=== PATIENT | female | born 1990 | race Caucasian/White ===

== ENCOUNTER 2016-10-05 15:00 | Outpatient (RCR) | payer BC | END 2016-10-13 | LOC: M OUTALCOH 15:00 | PROVIDERS: ATTEND Psychiatry & Neurology Psychiatry | DX: F11.20 Opioid dependence, uncomplicated (principal); F17.200 Nicotine dependence, unspecified, uncomplicated ==

== ENCOUNTER 2016-10-08 13:06 | Emergency (ER) | payer BC ==
--- NOTE | 2016-10-08 14:20 | EDDOCDS ---
Physician Documentation [facility] Name: Kaila Larson Age: 26 yrs Sex: Female : 1990 Arrival Date: 10/08/2016 Time: 13:06 Bed TR8 Private MD: Ebony Aguirre Disposition: 10/08/16 13:41 Discharged to Home/Self Care. Impression: Epigastric pain. - Condition is Stable. - Discharge Instructions: Gastritis, Adult, [id number]. - Prescriptions for Carafate 1 gram Oral Tablet - take 2 tablet by ORAL route every 12 hours take on an empty stomach, beginning on waking and last dose at bedtime; 100 tablet. - Medication Reconciliation, Local Pharmacy Hours form. - Follow up: Ebony Aguirre; When: Call to arrange an appointment; Reason: Further diagnostic work-up, Recheck today's complaints, Continuance of care. - Problem is new. - Symptoms are unchanged. Historical: - Allergies: no known allergies; - Home Meds: 1. Depakote 250 mg Oral TbEC nightly (Last dose: 10/07/2016) 2. trazodone 100 mg oral tab 1 tab nightly (Last dose: 10/07/2016) 3. Vistaril 50 mg Oral cap three times a day (Last dose: 10/06/2016) 4. Topamax 50 mg Oral tab twice a day (Last dose: 10/06/2016) 5. Vivitrol Injection once every 28 days (Last dose: 09/21/2016) - PMHx: Hepatitis C; - PSHx: Tonsillectomy; Rhinoplasty; Colonoscopy; - Social history: Smoking status: Patient uses tobacco products, light tobacco smoker. No barriers to communication noted. - Family history: Not pertinent. - : The pt / caregiver states he / she is not on anticoagulants. Home medication list is obtained from the patient. - Exposure Risk Screening:: None identified. 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 3 in. (160.02 cm) (R); Pain 8/10; 13:07 Body Mass Index 23.74 (60.78 kg, 160.02 cm) elp MDM: 13:56 Financial registration complete. Signatures: Loan Durand, Aidan Reg lg Chris Marti PA PA btw [address],RN RN cjh MTDD
--- NOTE | 2016-10-08 14:21 | EDDOCDS ---
Nurse's Notes [facility] Name: Kaila Larson Age: 26 yrs Sex: Female : 1990 Arrival Date: 10/08/2016 Time: 13:06 Bed TR8 Private MD: Ebony Aguirre Diagnosis: Epigastric pain Presentation: 10/08 13:11 Presenting complaint: Patient states: mid central upper abdominal pain, worse after [facility] eating, seen about a month ago at [place] they didn't find anything but going on episodically since, just diagnosed with hepatitis C a couple of weeks ago. Risk factors: the patient reports no vaginal bleeding. Adult Sepsis Screening: The patient does not have new or worsening altered mentation. Patient's respiratory rate is less than 22. Systolic blood pressure is greater than 100. Patient has a qSOFA score of 0- Negative Sepsis Screen. Suicide/Homicide risk assessment- the patient denies having any suicidal and/or homicidal ideations and does not present with any other emotional, behavioral or mental health complaints. 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 Transition of care: patient was not received from another setting of care. 13:11 Acuity: ETIENNE Level 3 [facility] 13:11 Method Of Arrival: Walkin/Carried/Asstd [facility] Triage Assessment: 13:17 General: Appears in no apparent distress, comfortable, Behavior is appropriate for age, [facility] cooperative. Pain: Location: epigastric area. HIV screening NA for this visit Offered previously. GI: Reports upper abd pain. 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 Depakote 250 mg Oral TbEC nightly (Last dose: 10/07/2016) 2. trazodone 100 mg oral tab 1 tab nightly (Last dose: 10/07/2016) 3. Vistaril 50 mg Oral cap three times a day (Last dose: 10/06/2016) 4. Topamax 50 mg Oral tab twice a day (Last dose: 10/06/2016) 5. Vivitrol Injection once every 28 days (Last dose: 09/21/2016) - PMHx: Hepatitis C; - PSHx: Tonsillectomy; Rhinoplasty; Colonoscopy; - Social history: Smoking status: Patient uses tobacco products, light tobacco smoker. No barriers to communication noted. - Family history: Not pertinent. - : The pt / caregiver states he / she is not on anticoagulants. Home medication list is obtained from the patient. - Exposure Risk Screening:: None identified. Screenin:17 Screening information is obtained from the patient. Fall risk: No risks identified. [facility] Assistance ADL's: requires no assistance with activities of daily living. Abuse/DV Screen: The patient / caregiver reports he/she is: not in a situation that causes fear, pain or injury. Nutritional screening: No deficits noted. Advance Directives: There is no active DNR order. home support is adequate. Assessment: 14:17 General: Appears in no apparent distress, comfortable, Behavior is appropriate for age, [facility] cooperative. Respiratory: Airway is patent Respiratory effort is even, unlabored, Respiratory pattern is regular, symmetrical. GI: Abdomen is non- distended assessed by PA assessed by PA. Vital Signs: 13:07 BP 122 / 75; Pulse 106; Resp 18; Temp 96.6(O); Pulse Ox 100% on R/A; Weight 60.78 kg el (R); Height 5 ft. 3 in. (160.02 cm) (R); Pain 8/10; 13:07 Body Mass Index 23.74 (60.78 kg, 160.02 cm) [facility] Vitals: 13:07 Log In Time: October 08, 2016 at 13:05. [facility] ED Course: 13:06 Patient visited by Nhi Daniels PCA. elp 13:06 Patient moved to Waiting elp 13:07 Ebony Aguirre is Private Physician. elp 13:08 Patient visited by Nhi Daniels PCA. elp 13:08 Patient moved to Pre RCE elp 13:13 Triage Initiated cj 13:28 Patient moved to Triage 3 dwg 13:29 [facility] btw 13:29 Richa Lara MD is Attending Physician. btw 13:29 Patient visited by Chris Marti PA. btw 13:30 Patient moved to Triage 2 dwg 13:41 Ebony Aguirre is Referral Physician. btw 13:56 Patient moved to TR8 [facility] 14:17 The patient / caregiver is instructed regarding the plan of care and ED course. [facility] 14:17 No IV's were initiated during this patient's visit. No procedures done that require [facility] assistance. Order Results: There are currently no results for this order. Outcome: 13:41 Discharge ordered by Provider. [facility] 14:17 Discharge Assessment: Patient awake, alert and oriented x 3. No cognitive and/or [facility] functional deficits noted. Patient verbalized understanding of disposition instructions. patient administered narcotics - no. The following High Risk Discharge criteria are identified: None. Discharged to home ambulatory. Condition: good Condition: stable Condition: improved. Discharge instructions given to patient, Instructed on discharge instructions, follow up and referral plans. medication usage, Demonstrated understanding of instructions, medications, Pt was receptive of discharge instructions/ teaching. Prescriptions given X 1. No special radiology studies were completed. Property :Personal belongings accompany Pt. 14:20 Patient left the ED. [facility] Signatures: Julio Valencia, RN RN Chris Lopez PA PA btw Hafner, Jane, RN RN [facility] Nhi Daniels, KATHRINE QUARTER SECTION IRONER elp ARTUROD
--- NOTE | 2016-10-10 15:21 | EDDOCDS ---
Nurse's Notes [facility] Name: Kaila Larson Age: 26 yrs Sex: Female : 1990 Arrival Date: 10/08/2016 Time: 13:06 Bed TR8 Private MD: Ebony Aguirre Diagnosis: Epigastric pain Presentation: 10/08 13:11 Presenting complaint: Patient states: mid central upper abdominal pain, worse after [facility] eating, seen about a month ago at [place] they didn't find anything but going on episodically since, just diagnosed with hepatitis C a couple of weeks ago. Risk factors: the patient reports no vaginal bleeding. Adult Sepsis Screening: The patient does not have new or worsening altered mentation. Patient's respiratory rate is less than 22. Systolic blood pressure is greater than 100. Patient has a qSOFA score of 0- Negative Sepsis Screen. Suicide/Homicide risk assessment- the patient denies having any suicidal and/or homicidal ideations and does not present with any other emotional, behavioral or mental health complaints. 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 Transition of care: patient was not received from another setting of care. 13:11 Acuity: ETIENNE Level [address] [facility] 13:11 Method Of Arrival: Walkin/Carried/Asstd [facility] Triage Assessment: 13:17 General: Appears in no apparent distress, comfortable, Behavior is appropriate for age, [facility] cooperative. Pain: Location: epigastric area. HIV screening NA for this visit Offered previously. 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 Historical: - Allergies: no known allergies; - Home Meds: 1. Depakote 250 mg Oral TbEC nightly (Last dose: 10/07/2016) 2. trazodone 100 mg oral tab 1 tab nightly (Last dose: 10/07/2016) 3. Vistaril 50 mg Oral cap three times a day (Last dose: 10/06/2016) 4. Topamax 50 mg Oral tab twice a day (Last dose: 10/06/2016) 5. Vivitrol Injection once every 28 days (Last dose: 09/21/2016) - PMHx: Hepatitis C; - PSHx: Tonsillectomy; Rhinoplasty; Colonoscopy; - Social history: Smoking status: Patient uses tobacco products, light tobacco smoker. No barriers to communication noted. - Family history: Not pertinent. - : The pt / caregiver states he / she is not on anticoagulants. Home medication list is obtained from the patient. - Exposure Risk Screening:: None identified. Screenin:17 Screening information is obtained from the patient. Fall risk: No risks identified. [facility] Assistance ADL's: requires no assistance with activities of daily living. Abuse/DV Screen: The patient / caregiver reports he/she is: not in a situation that causes fear, pain or injury. Nutritional screening: No deficits noted. Advance Directives: There is no active DNR order. home support is adequate. Assessment: 14:17 General: Appears in no apparent distress, comfortable, Behavior is appropriate for age, [facility] cooperative. Respiratory: Airway is patent Respiratory effort is even, unlabored, Respiratory pattern is regular, symmetrical. GI: Abdomen is non- distended assessed by PA assessed by PA. Vital Signs: 13:07 BP 122 / 75; Pulse 106; Resp 18; Temp 96.6(O); Pulse Ox 100% on R/A; Weight 60.78 kg el (R); Height 5 ft. 3 in. (160.02 cm) (R); Pain 8/10; 13:07 Body Mass Index 23.74 (60.78 kg, 160.02 cm) [facility] Vitals: 13:07 Log In Time: October 08, 2016 at 13:05. [facility] ED Course: 13:06 Patient visited by Nhi Daniels PCA. elp 13:06 Patient moved to Waiting elp 13:07 Ebony Aguirre is Private Physician. elp 13:08 Patient visited by Nhi Daniels PCA. elp 13:08 Patient moved to Pre RCE elp 13:13 Triage Initiated cj 13:28 Patient moved to Triage 3 dwg 13:29 [facility]. btw 13:29 Richa Lara MD is Attending Physician. btw 13:29 Patient visited by Chris Marti PA. btw 13:30 Patient moved to Triage 2 dwg 13:41 Ebony Aguirre is Referral Physician. btw 13:56 Patient moved to TR8 [facility] 14:17 The patient / caregiver is instructed regarding the plan of care and ED course. [facility] 14:17 No IV's were initiated during this patient's visit. No procedures done that require [facility] assistance. 15:17 [facility] Payment Agreement was scanned into [employer] and attached to record. 10/09 10:17 T-Sheet-- Draft Copy was scanned into [employer] and attached to record. gb Order Results: There are currently no results for this order. Outcome: 10/08 13:41 Discharge ordered by Provider. [facility] 14:17 Discharge Assessment: Patient awake, alert and oriented x 3. No cognitive and/or [facility] functional deficits noted. Patient verbalized understanding of disposition instructions. patient administered narcotics - no. The following High Risk Discharge criteria are identified: None. Discharged to home ambulatory. Condition: good Condition: stable Condition: improved. Discharge instructions given to patient, Instructed on discharge instructions, follow up and referral plans. medication usage, Demonstrated understanding of instructions, medications, Pt was receptive of discharge instructions/ teaching. Prescriptions given X 1. No special radiology studies were completed. Property :Personal belongings accompany Pt. 14:20 Patient left the ED. [facility] Signatures: Julio Valencia, RN RN [facility] Maritza Manriquez, Reg Reg gb Loan Durand, Reg Reg lg Chris Marti PA PA btw Hafner, Jane,RN RN [facility] Nhi Daniels, KATHRINE ASSISTANT PRODUCT MANAGER elp Chart Complete MTDD
--- NOTE | 2016-10-10 15:21 | EDDOCDS ---
Physician Documentation [facility] Name: Kiala Larson Age: 26 yrs Sex: Female : 1990 Arrival Date: 10/08/2016 Time: 13:06 Bed TR8 Private MD: Ebony Aguirre Disposition: 10/08/16 13:41 Discharged to Home/Self Care. Impression: Epigastric pain. - Condition is Stable. - Discharge Instructions: Gastritis, Adult, [id number]. - Prescriptions for Carafate 1 gram Oral Tablet - take 2 tablet by ORAL route every 12 hours take on an empty stomach, beginning on waking and last dose at bedtime; 100 tablet. - Medication Reconciliation, Local Pharmacy Hours form. - Follow up: Ebony Aguirre; When: Call to arrange an appointment; Reason: Further diagnostic work-up, Recheck today's complaints, Continuance of care. - Problem is new. - Symptoms are unchanged. Historical: - Allergies: no known allergies; - Home Meds: 1. Depakote 250 mg Oral TbEC nightly (Last dose: 10/07/2016) 2. trazodone 100 mg oral tab 1 tab nightly (Last dose: 10/07/2016) 3. Vistaril 50 mg Oral cap three times a day (Last dose: 10/06/2016) 4. Topamax 50 mg Oral tab twice a day (Last dose: 10/06/2016) 5. Vivitrol Injection once every 28 days (Last dose: 09/21/2016) - PMHx: Hepatitis C; - PSHx: Tonsillectomy; Rhinoplasty; Colonoscopy; - Social history: Smoking status: Patient uses tobacco products, light tobacco smoker. No barriers to communication noted. - Family history: Not pertinent. - : The pt / caregiver states he / she is not on anticoagulants. Home medication list is obtained from the patient. - Exposure Risk Screening:: None identified. 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 3 in. (160.02 cm) (R); Pain 8/10; 13:07 Body Mass Index 23.74 (60.78 kg, 160.02 cm) elp MDM: 13:56 Financial registration complete. lg : [facility] Payment Agreement was scanned into [employer] and attached to record. lg 10/09 10:17 T-Sheet-- Draft Copy was scanned into [email or web address] and attached to record. gb Signatures: Maritza Manriquez, Reg Reg gb Loan Durand, Reg Reg lg Chris Marti PA PA btw [address],RN RN [facility] The chart was reviewed and I authenticate all verbal orders and agree with the evaluation and treatment provided.Attachments: 10/08 15:17 [facility] Payment Agreement lg 10/09 10:17 T-Sheet-- Draft Copy gb Chart Complete MTDD
--- NOTE | 2016-10-10 15:21 | EDDOCDS ---
Physician Documentation [facility] Name: Kaila Larson Age: 26 yrs Sex: Female : 1990 Arrival Date: 10/08/2016 Time: 13:06 Bed TR8 Private MD: Ebony Aguirre Disposition: 10/08/16 13:41 Discharged to Home/Self Care. Impression: Epigastric pain. - Condition is Stable. - Discharge Instructions: Gastritis, Adult, [id number]. - Prescriptions for Carafate 1 gram Oral Tablet - take 2 tablet by ORAL route every 12 hours take on an empty stomach, beginning on waking and last dose at bedtime; 100 tablet. - Medication Reconciliation, Local Pharmacy Hours form. - Follow up: Ebony Aguirre; When: Call to arrange an appointment; Reason: Further diagnostic work-up, Recheck today's complaints, Continuance of care. - Problem is new. - Symptoms are unchanged. Historical: - Allergies: no known allergies; - Home Meds: 1. Depakote 250 mg Oral TbEC nightly (Last dose: 10/07/2016) 2. trazodone 100 mg oral tab 1 tab nightly (Last dose: 10/07/2016) 3. Vistaril 50 mg Oral cap three times a day (Last dose: 10/06/2016) 4. Topamax 50 mg Oral tab twice a day (Last dose: 10/06/2016) 5. Vivitrol Injection once every 28 days (Last dose: 09/21/2016) - PMHx: Hepatitis C; - PSHx: Tonsillectomy; Rhinoplasty; Colonoscopy; - Social history: Smoking status: Patient uses tobacco products, light tobacco smoker. No barriers to communication noted. - Family history: Not pertinent. - : The pt / caregiver states he / she is not on anticoagulants. Home medication list is obtained from the patient. - Exposure Risk Screening:: None identified. 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 3 in. (160.02 cm) (R); Pain 8/10; 13:07 Body Mass Index 23.74 (60.78 kg, 160.02 cm) elp MDM: 13:56 Financial registration complete. lg : [facility] Payment Agreement was scanned into [employer] and attached to record. lg 10/09 10:17 T-Sheet-- Draft Copy was scanned into [employer] and attached to record. gb Signatures: Maritza Manriquez, Reg Reg gb Loan Durand, Reg Reg lg Chris Marti PA PA btw [address],RN RN [facility] The chart was reviewed and I authenticate all verbal orders and agree with the evaluation and treatment provided.Attachments: 10/08 15:17 [facility] [place] Agreement lg 10/09 10:17 T-Sheet-- Draft Copy gb Chart Complete MTDD
== END 2016-10-08 14:20 | disposition home or self-care (01) ==
LOC: M ED 13:06
DX: K52.9 Noninfective gastroenteritis and colitis, unspecified (principal); B19.20 Unspecified viral hepatitis C without hepatic coma; F17.210 Nicotine dependence, cigarettes, uncomplicated; Z79.899 Other long term (current) drug therapy

== ENCOUNTER → 2017-09-15 | Outpatient (CLI) | payer OTHER | LOC: M OUTALCOH 08:10 | DX: F11.20 Opioid dependence, uncomplicated (principal); F14.20 Cocaine dependence, uncomplicated ==

== ENCOUNTER 2017-09-24 10:06 | Outpatient (RCR) | payer OTHER | END 2017-10-13 | LOC: M OUTALCOH 10:06 | DX: F11.20 Opioid dependence, uncomplicated (principal); Z72.0 Tobacco use; F14.20 Cocaine dependence, uncomplicated ==

== ENCOUNTER → 2017-09-30 | Outpatient (REF) | payer OTHER ==
[2017-09-30 16:11] LABS: ALBUMIN/GLOBULIN RATIO 0.83 (1.00-1.93); ALKALINE PHOSPHATASE 110 U/L (45-117); ALT/SGPT 458 U/L (12-78); AST/SGOT 165 U/L (7-37); BILIRUBIN,DIRECT 0.1 MG/DL (0.0-0.2); BILIRUBIN,TOTAL 0.5 MG/DL (0.2-1.0); TOTAL PROTEIN 8.8 GM/DL (6.4-8.2)
[2017-10-06 00:06] LABS: HEPATITIS C QUANTITATION 480480 IU/mL (.); HEPATITIS C VIRUS GENOTYPE 3 (.)
== END ==
LOC: M SFHCPLAZ 11:48
DX: B18.2 Chronic viral hepatitis C (principal)
CPT/HCPCS: 87902